=== PATIENT | male | born 1965 | race Caucasian/White ===

== ENCOUNTER 2017-04-11 13:22 | Emergency (ER) | payer OTHER ==
[~2017-04-11] VITALS: Ht 175.3 cm; Wt 121.1 kg
--- NOTE | ~2017-04-11 | EKG ---
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 : 1965 Requested By: Romaine Butler Order Number: [id number] MD: Georges Warren Measurements Intervals [place] Rate: 87 P: 51 TX: 145 QRS: 31 QRSD: 106 T: 30 QT: 348 QTc: 419 Interpretive Statements Sinus rhythm Baseline wander in lead(s) I,II,aVR,V5 Compared to ECG 11/26/2016 01:02:45 Sinus tachycardia no longer present ST (T wave) deviation no longer present Electronically Signed On 04-14-2017 8:27:15 CDT by Georges Warren [email or web address] <ELECTRONICALLY SIGNED> By: Georges Warren MD 04/14/17 0827 1341 1341 Georges Warren MD /EPI
--- NOTE | ~2017-04-11 | EKG ---
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 : 1965 Requested By: Romaine Butler Order Number: [id number] MD: Georges Warren Measurements Intervals [place] Rate: 176 P: 0 TX: QRS: 53 QRSD: 99 T: 266 QT: 262 QTc: 449 Interpretive Statements Supraventricular tachycardia Repolarization abnormality, prob rate related Compared to ECG 11/26/2016 01:02:45 Early repolarization now present Sinus tachycardia no longer present ST (T wave) deviation no longer present Electronically Signed On 04-14-2017 8:26:32 CDT by Georges Warren [email or web address] <ELECTRONICALLY SIGNED> By: Georges Warren MD 04/14/17 0826 1325 1325 Georges Warren MD /BELINDA
[~2017-04-11 13:22] MED LIST: CARDIZEM CD180 MG PO; CARTIA XT180 M1 PO; CARTIA XT240 M1 PO; NOHOMEMEDICATIONS; TORADOL 10 MG T10 MG PO
[2017-04-11 14:07] VITALS: BP 114/68
== END 2017-04-11 14:10 | disposition home or self-care (01) ==
LOC: ER 13:22
DX: I47.1 Supraventricular tachycardia (principal); Z88.5 Allergy status to narcotic agent

== ENCOUNTER 2019-08-24 19:36 | Emergency (ER) | payer OTHER ==
[~2019-08-24] VITALS: Ht 175.3 cm; Wt 127.0 kg
[2019-08-24 20:25] LABS: ABSOLUTE NEUTROPHILS 4.7 thou/uL (1.4-8.2); BASOPHILS 0.7 % (0.0-2.0); EOSINOPHILS 3.5 % (0.0-3.0); LYMPHOCYTES 34.5 % (24.0-44.0); MCH 30.8 pg (26.0-34.0); MCHC 34.1 g/dL (28.0-37.0); MCV 90.3 fL (80.0-100.0); MONOCYTES 11.3 % (1.0-8.0); PLATELET COUNT 215 thou/uL (150-400); RBC 5.21 mil/uL (4.50-6.00); RDW 13.3 % (10.5-14.5); WBC 9.5 thou/uL (4.0-11.0)
[2019-08-24 20:35] LABS: ANION GAP 11 mmol/L (7-16); BUN 21 mg/dL (7-18); CALCIUM 8.6 mg/dL (8.5-10.1); CHLORIDE 103 mmol/L (98-107); CO2 23 mmol/L (21-32); GLUCOSE 99 mg/dL (74-106); POTASSIUM 4.9 mmol/L (3.5-5.1); SODIUM 137 mmol/L (136-145)
[2019-08-24 20:38] LABS: APTT 25.4 Seconds (24.5-32.8); PROTIME 10.3 Seconds (9.3-11.4)
[2019-08-24 20:44] LABS: ALBUMIN 3.6 g/dL (3.4-5.0); MAGNESIUM 2.2 mg/dL (1.8-2.4); SGOT 39 U/L (15-37); SGPT 42 U/L (30-65); TOTAL BILIRUBIN 0.8 mg/dL (<0.1-1.0); TOTAL PROTEIN 7.4 g/dL (6.4-8.2); TROPONIN-I <0.06 ng/mL (<0.06)
[2019-08-24 21:04] LABS: AMP/METHAMP Negative (Negative); BARBITURATES Negative (Negative); BENZODIAZEPINES Negative (Negative); COCAINE Negative (Negative); METHADONE Negative (Negative); OPIATES Negative (Negative); PCP Negative (Negative)
[2019-08-24] MEDS ORDERED: CARDIZEM CD120 MG PO (21:20)
[2019-08-24 21:37] VITALS: BP 100/58
--- NOTE | 2019-08-25 08:04 | EKG ---
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[employer]: : 1965 Requested By: Jack Herzog Order Number: [id number] MD: Georges Warren Measurements Intervals [place] Rate: 199 P: 0 SC: QRS: 43 QRSD: 95 T: -35 QT: 261 QTc: 475 Interpretive Statements Supraventricular tachycardia Repolarization abnormality, prob rate related Compared to ECG 04/11/2017 13:41:18 Early repolarization now present Sinus rhythm no longer present Electronically Signed On 08-25-2019 8:04:24 CDT by Georges Warren [email or web address] <ELECTRONICALLY SIGNED> By: Georges Warren MD 08/25/19 0804 34 34 Georges Warren MD /BELINDA
--- NOTE | 2019-08-25 08:05 | EKG ---
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
== END 2019-08-24 21:41 | disposition home or self-care (01) ==
LOC: ER 19:36
PROVIDERS: Emergency Medicine
DX: I47.1 Supraventricular tachycardia (principal); Z90.49 Acquired absence of other specified parts of digestive tract; Z88.5 Allergy status to narcotic agent